=== PATIENT | male | born 1970 | race Two or more races ===

== ENCOUNTER 2024-07-22 02:31 | Emergency (ER) | payer OTHER ==
[~2024-07-22] VITALS: Ht 175.3 cm; Wt 115.0 kg
[2024-07-22 02:54] VITALS: BP 145/88; PULSE 85; RESP 18; TEMP 98; O2SAT 95
[2024-07-22] MEDS: HYDROcodone-ACET 5/325MG TAB PO ONE (03:01)
[2024-07-22] MEDS ORDERED: CYCL-837 PO (03:04)
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
--- NOTE | 2024-07-22 04:01 | DVH ---
EXAM: XY LUMBAR SPINE 3 VIEW HISTORY: lumbar back pain COMPARISON: None TECHNIQUE: AP and lateral views of the lumbar spine and spot lateral of the lumbosacral junction were performed. IMPRESSION: Mild compression deformities of T11, T12, and L2 age and etiology indeterminate. Correlation with poi nt tenderness is recommended. Mild degenerative changes of the lumbar spine otherwise with anterior osteophytes.
--- NOTE | 2024-07-22 04:02 | DVH ---
EXAMINATION: XY R RIB XRAY INDICATION: right rib pain COMPARISON: None TECHNIQUE: Frontal view of the chest and 2 views of the right ribs history FINDINGS: No focal consolidation, pleural effusion or significant pneumothorax. Normal cardiomediastinal silhou ette. No displaced right rib fracture. IMPRESSION: 1. No acute cardiopulmonary disease. 2. No displaced right rib fracture.
--- NOTE | 2024-07-22 04:12 | DVH ---
EXAM: CT CERVICAL WITHOUT CONTRAST INDICATION: neck pain EXAM DATE: 07/22/2024 03:18 AM COMPARISON: None TECHNIQUE: Multiple axial CT images of the cervical spine were obtained using bone algorithm. Sagitta l and coronal reformatting was done. Bone and soft tissue windows were reviewed. Radiation Dose Information: CT Dose: CTDI volume is 23.7 mGy. Dose-length product is 674.6 mGy*cm FINDINGS: The cervical alignment is intact. The curvature is maintained. No acute cervical spine fracture is id entified. The vertebral body heights are intact. No suspicious osseous lesions are identified. No evidence of significant spinal stenosis or neural foraminal stenosis. There is no prevertebral soft tissue swelling. The lung apices are clear. IMPRESSION: 1. No evidence of acute cervical spine fracture or traumatic malalignment. All CT scans at this medical facility are performed using dose modulation techniques as appropriate t o a performed exam including the following: Automated exposure control was utilized; adjustment of th e MA and/or KV according to patient size; and use of iterative reconstruction technique.
[2024-07-22] MEDS ORDERED: ACE3T PO (04:18)
== END 2024-07-22 04:26 | disposition home or self-care (01) ==
LOC: ER 02:31
DX: S16.1XXA Strain of muscle, fascia and tendon at neck level, initial encounter (principal); S20.211A Contusion of right front wall of thorax, initial encounter; S30.0XXA Contusion of lower back and pelvis, initial encounter; I10 Essential (primary) hypertension; Z79.899 Other long term (current) drug therapy; V43.52XA Car driver injured in collision with other type car in traffic accident, initial encounter; Y93.89 Activity, other specified; Y92.89 Other specified places as the place of occurrence of the external cause; Y99.8 Other external cause status
CPT/HCPCS: 71101; 72100; 72125